=== PATIENT | male | born 1965 | race Caucasian/White ===

== ENCOUNTER 2021-11-07 09:27 | Outpatient (CLI) | payer OTHER | END 2021-11-07 09:28 | disposition home or self-care (01) | LOC: CTENTCT 09:27 | PROVIDERS: ATTEND Student in an Organized Health Care Education/Training Program | DX: J01.90 Acute sinusitis, unspecified (principal) | CPT/HCPCS: 70486 ==

== ENCOUNTER 2021-11-20 13:41 | Outpatient (CLI) | payer OTHER | END 2021-11-20 13:42 | disposition home or self-care (01) | LOC: LABBT 13:41 | PROVIDERS: ATTEND Family Medicine | DX: Z20.822 Contact with and (suspected) exposure to COVID-19 (principal) | CPT/HCPCS: 87811 ==

== ENCOUNTER 2021-11-22 09:00 | Outpatient (CLI) | payer OTHER | END 2021-11-22 09:01 | disposition home or self-care (01) | LOC: RAD 09:00 | PROVIDERS: ATTEND Student in an Organized Health Care Education/Training Program | DX: T17.908A Unspecified foreign body in respiratory tract, part unspecified causing other injury, initial encounter (principal) | CPT/HCPCS: 74230 ==